=== PATIENT | female | born 1960 | race Caucasian/White ===

== ENCOUNTER 2017-09-06 16:19 | Emergency (ER) | payer OTHER ==
[~2017-09-06] VITALS: Ht 165.1 cm; Wt 88.9 kg
[~2017-09-06 16:19] MED LIST: KEFLEX250 MG PO; LEVOXYL; ULTRAM 50MG TAB50 MG PO
[2017-09-06 16:42] VITALS: BP 145/61
== END 2017-09-06 16:43 | disposition home or self-care (01) ==
LOC: M.ERS 16:19
DX: S62.502A Fracture of unspecified phalanx of left thumb, initial encounter for closed fracture (principal); S61.002A Unspecified open wound of left thumb without damage to nail, initial encounter; E03.9 Hypothyroidism, unspecified; W27.4XXA Contact with kitchen utensil, initial encounter; Y93.89 Activity, other specified; Y92.89 Other specified places as the place of occurrence of the external cause; Y99.8 Other external cause status

== ENCOUNTER → 2017-09-18 | Outpatient (CLI) | payer OTHER | LOC: M.RAD 10:09 | DX: R07.9 Chest pain, unspecified (principal) ==

== ENCOUNTER 2018-11-24 11:31 | Emergency (ER) | payer OTHER ==
[~2018-11-24] VITALS: Ht 165.1 cm; Wt 86.2 kg
[2018-11-24] MEDS ORDERED: NORCO 5-325 TA1 EAC1 PO (12:29)
[2018-11-24 12:37] VITALS: BP 152/117
== END 2018-11-24 12:37 | disposition home or self-care (01) ==
LOC: M.ERS 11:31
DX: S96.812A Strain of other specified muscles and tendons at ankle and foot level, left foot, initial encounter (principal); S96.811A Strain of other specified muscles and tendons at ankle and foot level, right foot, initial encounter; E03.9 Hypothyroidism, unspecified; W22.8XXA Striking against or struck by other objects, initial encounter; Y93.89 Activity, other specified; Y92.89 Other specified places as the place of occurrence of the external cause; Y99.8 Other external cause status